=== PATIENT | male | born 1950 | race Caucasian/White ===

== ENCOUNTER → 2021-04-16 00:32 | Outpatient (CLI) | payer MEDICARE, SELFPAY ==
[2021-04-16 19:27] LABS: SARS-CoV-2 RNA PCR Negative
== END ==
PROVIDERS: PCP Family Medicine; Visit Provider Specialist
DX: Z01.812 Encounter for preprocedural laboratory examination (principal); Z20.822 Contact with and (suspected) exposure to COVID-19
CPT/HCPCS: C9803; U0003; U0005

== ENCOUNTER 2021-04-16 09:47 | Outpatient (CLI) | payer MEDICARE, SELFPAY ==
--- NOTE | 2021-04-16 10:17 | ECG_ITS ---
Measurements Intervals [place] Rate: 63 P: 47 KS: 147 QRS: -9 QRSD: 110 T: 32 QT: 377 QTc: 387 Interpretive Statements SINUS RHYTHM WITH SINUS ARRHYTHMIA INCOMPLETE RIGHT BUNDLE BRANCH BLOCK DELAYED PRECORDIAL R/S TRANSITION BORDERLINE ECG Electronically Signed On 04-16-2021 14:18:29 CDT by Rizwan Kay D.O.
[2021-04-16 10:49] LABS: Anion Gap 10 mmol/L (8-16); Blood Urea Nitrogen 17 mg/dL (9-20); Calcium 9.9 mg/dL (8.4-10.2); Carbon Dioxide 24 mmol/L (22-30); Chloride 106 mmol/L (98-107); Estimated Glomerular Filt Rate > 60; Glucose 200 mg/dL (75-110); Potassium 4.6 mmol/L (3.4-5.0); Sodium 140 mmol/L (137-145)
== END 2021-04-16 09:48 | disposition home or self-care (01) ==
PROVIDERS: PCP Family Medicine; Visit Provider Anesthesiology
DX: E11.9 Type 2 diabetes mellitus without complications (principal); I10 Essential (primary) hypertension; Z01.818 Encounter for other preprocedural examination; I45.10 Unspecified right bundle-branch block
CPT/HCPCS: 36415; 80048; 93005; C9803; U0003; U0005

== ENCOUNTER 2021-04-20 00:34 | Day surgery (SDC) | payer MEDICARE, SELFPAY ==
[2021-04-01 11:14] VITALS: BMI 34.4
--- NOTE | 2021-04-19 13:48 | WPDANESEPPF ---
Anes - Initial Pre Proc Eval Procedure: Operation Date: 04/20/21 07:30 Proposed Procedures p Right Shoulder Arthroscopy, Rotator Cuff Repair, Labrum Repair - Rich Buckner MD Date/Time: 04/19/21 13:48 Surgeon: Rich Buckner MD Pre Op Diagnosis: right shoulder pain Patient Data Age: 70 Gender: M Height: 1.78 m Weight: 108.9 kg Allergies Allergy/AdvReac Type Severity Reaction Status Date / Time No Known Allergies Allergy Verified 04/20/21 06:19 Home Medications Medication Instructions Recorded Confirmed Type bupropion HCl 100 mg PO QAM 04/01/21 04/20/21 History cholecalciferol (vitamin D3) 125 mcg PO DAILY 04/01/21 04/20/21 History enalapril maleate 10 mg PO DAILY 04/01/21 04/20/21 History fesoterodine [Toviaz] 8 mg PO DAILY 04/01/21 04/20/21 History gabapentin 800 mg PO TID 04/01/21 04/20/21 History ibuprofen 800 mg PO BID 04/01/21 04/20/21 History insulin asp prt-insulin aspart 35 unit SUBCUT QPM 04/01/21 04/20/21 History [Novolog Mix 70-30FlexPen U-100] insulin asp prt-insulin aspart 55 unit SUBCUT QAM 04/01/21 04/20/21 History [Novolog Mix 70-30FlexPen U-100] lactobacillus combination no.4 3,000 mmu cells PO DAILY 04/01/21 04/20/21 History [Probiotic] metformin 1,000 mg PO BID 04/01/21 04/20/21 History metoprolol succinate 50 mg PO QAM 04/01/21 04/20/21 History mycophenolate mofetil 1,000 mg PO BID 04/01/21 04/20/21 History omega 1-uzy-ecj-fish oil [Fish Oil] 1 cap PO DAILY 04/01/21 04/20/21 History pantoprazole 40 mg PO DAILY 04/01/21 04/20/21 History semaglutide [Ozempic] 1 mg SUBCUT WEEKLY 04/01/21 04/20/21 History tramadol 50 mg PO BID 04/01/21 04/20/21 History valacyclovir 500 mg PO DAILY 04/01/21 04/20/21 History venlafaxine 225 mg PO QAM 04/01/21 04/20/21 History ECG: Date of Service: 04/16/21 Procedure(s): CA 12 lead EKG Accession Number(s): [id number] cc: ~ Measurements Intervals [place] Rate: 63 P: 47 KS: 147 QRS: -9 QRSD: 110 T: 32 QT: 377 QTc: 387 Interpretive Statements SINUS RHYTHM WITH SINUS ARRHYTHMIA INCOMPLETE RIGHT BUNDLE BRANCH BLOCK DELAYED PRECORDIAL R/S TRANSITION BORDERLINE ECG Electronically Signed On 04-16-2021 14:18:29 CDT by Rizwan Kay D.O. Patient hx anesthesia problems: none Family hx anesthesia problems: none [facility] Past Medical History Medical History COPD (chronic obstructive pulmonary disease) Depression Diabetes HTN (hypertension) Interstitial lung disease [place] on CPAP Rheumatoid arthritis Smoker Social History Social History Smoking packs per day: 1 Smoking cigarettes per day: 20.0 Years smoked: 30 Smoking pack-years: 30.00 Smoking status: Current every day smoker Tobacco type: cigarettes Living arrangements: with family Spiritual care concerns: No Anes - Eval Final PreProcedure Day of Procedure 04/19/21 13:48 Patient weight: obese Heart: regular rate and rhythm Lungs: clear to auscultation and normal air movement Airway: Mallampati scale class II Neurological: alert and oriented Last oral intake: >/= 8 hours ASA classification: III Emergent: no Anesthetic plan: proceed Anesthesia type and monitoring: general ETT Informed Consent: The patient's anesthetic plan and its attendant risks and benefits were discussed with the patient/family/POA. Questions were solicited and answers provided to the satisfaction of the patient/family/POA.
[2021-04-20] VITALS (8 sets, daily range): BP systolic 121–166; BP diastolic 42–77; PULSE 72–86; RESP 16–20; TEMP 36.1–36.2; O2SAT 96–100
[2021-04-20] MEDS: ACETAMINOPHEN 500 MG TABLET 1000 MG PO (06:54)
[2021-04-20 06:55] LABS: Glucose Point of Care 193 mg/dl (65-105)
[2021-04-20] MEDS: LACTATED RINGERS 1,000 ML 30 ML IV CONT ×2 (06:58→09:22)
[2021-04-20] MEDS: KETOROLAC 15 MG/ML VIAL (*BKC) IV PUSH (06:58)
--- NOTE | 2021-04-20 07:30 | WPDHPUPDATE1 ---
History and Physical Update Update Date/Time: 04/20/21 07:30 History and Physical has been reviewed, including an updated exam of the patient. There are NO changes in the patient's condition. Risks, benefits, and alternatives have been discussed and questions answered. Patient agrees to proceed with procedure.
[2021-04-20] MEDS: ceFAZolin 2 GM/D5W 50 ML 2 GM/50 ML BAG IVPB (07:34)
[2021-04-20] MEDS: EPINEPHrine HCL INJ 1 MG/ML AMPUL IRRIGATION (08:46)
--- NOTE | 2021-04-20 09:31 | W.PM.PROC2 ---
Procedure Note - Detailed Date of Procedure 04/20/21 Pre-op Diagnosis right shoulder pain: Anterior Labral tear and biceps tendon SLAP; possible rotator cuff tear; Anterior acromial spur and subacromial bursitis Post-op Diagnosis same Procedure Performed Diagnostic and operative shoulder arthroscopy, Subacromial bursectomy, Anterior acromioplasty, tenotomy of the biceps tendon, debridement of anterior and superior labral fraying Surgeon Rich Buckner MD [employer] Anesthesia general Indications 70 yo with pain in right shoulder without relief with conserative treatment. Pt is aware of the risks, benefits, and alternative treatments and he wished to go forward with surgical intervention. Findings Less than 10% supraspinatus tearing. Biceps anchor instability. Significant subacromial bursitis with large anterior acromial spurring. Labral tearing from 10:00 to 3:00. No anterior inferior instability was noted. The shoulder was stable without Patri looseness of the axillary pouch. Anterior inferior drawer maneuver and abduction external rotation maneuvers showed good stability. Description of Procedure Patient was identified and brought to the operating room in stable condition. After a surgical time in time-out was performed he received general anesthetic. He was positioned in the beach chair and all the prominent bony areas and superficial nerves were padded. He had sequential stockings on his legs. His head was well secured and the neck and head angle looks comfortable. His shoulder was then sterilely prepped and draped in the usual fashion. We confirmed he had received appropriate IV antibiotics for the proposed procedure. The landmarks on the skin were marked the acromion and the AC joint and distal clavicle and the coracoid were outlined. A posterior portal was established with an 11 blade scalpel. Previous to making the incision I injected the subacromial space with about 20 cc of the arthroscopic fluid which had a 1 to [id number] epinephrine dilution. Small portal incision was made and then the arthroscope was placed into the glenohumeral joint. The biceps tendon was seen to be attached to the labrum but unstable with respect to the superior glenoid. There was a labral tear from about 10:00 a.m. posteriorly to 3:00 a.m. anteriorly a large middle glenohumeral ligament was seen. Below the equator the labrum was well attached. The axillary pouch was not found to be patulous. And no instability was noted with stress testing. The rotator cuff was investigated the subscapularis tendon was within normal limits. The subscapularis recess had no loose bodies or any pathology seen. The biceps tendon was somewhat frayed. The supraspinatus infraspinatus and teres minor all appeared normal from the from the glenohumeral side. The scope was then placed into the subacromial space where a tenacious bursitis was seen. This was slowly resected using the arthroscopic shaver and the bipolar electrocautery. The anterior acromial spur was outlined and then cope planed with the posterior acromion about 10 mm of the anterior acromion was removed. The undersurface of the distal clavicle had just a few osteophytes and these were removed as well. Once the bursectomy and anterior acromioplasty had been completed we had excellent visualization of the rotator cuff. There was some fraying anteriorly over the supraspinatus and infraspinatus from the bursal side but this was less than 10% of the entire width of the tendons. This was carefully visualized and probed and no full-thickness tears of the rotator cuff were seen. The scope was placed back into the glenohumeral joint and we assessed the biceps tendon and the labral tearing. Given the patient's age and activity level I did not want to perform a slap repair. I had discussed the possibility of tenotomy with the patient preoperatively and I felt this was the best course for this patient's shoulder to avoid the marginal
[2021-04-20] MEDS: fentaNYL CITRATE INJ (*CRX) 100 MCG/2 ML VIAL 25 MCG IV PUSH ×2 (10:00→10:10)
[2021-04-20 10:06] LABS: Glucose Point of Care 185 mg/dl (65-105)
[2021-04-20] MEDS: oxyCODONE HCL (*CRX) 5 MG TAB IR PO (11:04)
--- NOTE | 2021-04-20 11:42 | SUR.PHASEII ---
PATIENT ASSISTED WITH DRESSING BY 1 RN'S. IMMOBILIZER REPLACED TO RIGHT SHOULDER.
== END 2021-04-20 11:42 | disposition home or self-care (01) ==
PROVIDERS: PCP Family Medicine; Visit Provider Specialist
PROC: (CPT 29805; principal; 2021-04-20 07:30)
DX: M75.111 Incomplete rotator cuff tear or rupture of right shoulder, not specified as traumatic (principal); M75.51 Bursitis of right shoulder; M75.81 Other shoulder lesions, right shoulder; M19.011 Primary osteoarthritis, right shoulder; I10 Essential (primary) hypertension; E11.9 Type 2 diabetes mellitus without complications; J44.9 Chronic obstructive pulmonary disease, unspecified; J84.9 Interstitial pulmonary disease, unspecified; G47.33 Obstructive sleep apnea (adult) (pediatric); M06.9 Rheumatoid arthritis, unspecified; F32.9 Major depressive disorder, single episode, unspecified; F17.210 Nicotine dependence, cigarettes, uncomplicated; E66.9 Obesity, unspecified; Z68.34 Body mass index [BMI] 34.0-34.9, adult; Z79.4 Long term (current) use of insulin; Z79.84 Long term (current) use of oral hypoglycemic drugs
CPT/HCPCS: 29823; 82948; A4565; A9270; C9290; J0171; J0330; J0690; J1100; J1885; J2001; J2250; J2704; J2710; J3010; J7120